=== PATIENT | male | born 1935 | race Caucasian/White ===

== ENCOUNTER 2020-08-13 13:53 | Inpatient (IN) ==
[2020-08-13] MEDS ORDERED: Heparin DRIP 25,000 UNITS BAG 25,000 UNITS/500 ML BAG IV SCH (14:15)
[2020-08-13 14:41] LABS: Urine Appearance Clear; Urine Bilirubin Negative (Negative); Urine Blood 1+ (Negative); Urine Color Yellow; Urine Glucose Negative (Negative); Urine Ketones Negative (Negative); Urine Nitrite Negative (Negative); Urine Protein Negative (Negative); Urine Specific Gravity 1.021 (1.010-1.030); Urine Urobilinogen Negative (Negative)
[2020-08-13 14:50] LABS: ALT 31 U/L (7-52); AST 34 U/L (13-39); Albumin 3.9 g/dL (3.2-5.2); Alkaline Phosphatase 45 U/L (34-104); Anion Gap 7 mmol/L (2-11); BUN/Creatinine Ratio 23.8 (8-20); Blood Urea Nitrogen 31 mg/dL (6-24); CO2 Carbon Dioxide 21 mmol/L (22-32); Calcium 8.6 mg/dL (8.6-10.3); Chloride 110 mmol/L (101-111); Creatine Kinase 350 U/L (10-223); EGFR African American 63.5 (>60); EGFR Non-African American 52.5 (>60); Glucose 123 mg/dL (70-100); Sodium 138 mmol/L (135-145); Total Protein 5.9 g/dL (6.4-8.9)
[2020-08-13 14:56] LABS: Troponin I 2.71 ng/mL (<0.03)
[2020-08-13 14:58] LABS: CKMB ng/mL 30.8 ng/mL (0.6-6.3)
[2020-08-13] MEDS ORDERED: Heparin 5000 UNITS/ML 1 mL VIAL IV SCH (15:00)
[2020-08-13 15:05] LABS: Hematocrit 40 % (42-52); Hemoglobin 13.4 g/dL (14.0-18.0); Mean Corpuscular HGB Conc 34 g/dL (31-36); Mean Corpuscular Hemoglobin 35 pg (27-31); Mean Corpuscular Volume 103 fL (80-94); Red Blood Count 3.83 10^6 /uL (4.18-5.48); Red Cell Distribution Width 14 % (10-15); White Blood Count 6.9 10^3/uL (3.5-10.8)
[2020-08-13 15:06] LABS: ABS Eosinophils 0.2 10^3/ul (0-0.6); ABS Lymphocytes 1.8 10^3/ul (1.0-4.8); Eosinophil % 2.2 %; Lymphocyte % 25.2 %; Nucleated Red Blood Cells % 0.1
[2020-08-13 15:09] LABS: Urine Bacteria Absent (Absent); Urine Red Blood Cell Trace(0-2/hpf) (Absent); Urine White Blood Cell Absent (Absent)
[2020-08-13 15:14] LABS: INR 1.5 (0.82-1.09)
[2020-08-13 15:15] LABS: Activated Partial Thrombo Time 204.1 seconds (26.0-38.0)
[2020-08-13 15:24] LABS: TSH Ultra Thyroid Stim Horm 2.08 mcIU/mL (0.34-5.60)
[2020-08-13 15:47] LABS: Mean Platelet Volume 8.1 fL (7.4-10.4); Platelet Count 95 10^3/uL (150-450)
[2020-08-13] MEDS ORDERED: Ondansetron 4 mg VIAL 2 MG/ML 2 ml VIAL IV PRN (16:07)
[2020-08-13] MEDS ORDERED: Al Hydrox/Mg Hydrox/Simet LIQ 30 ML UDC PO PRN (16:07)
[2020-08-13] MEDS: CMC:Dorzolamide/Timolol OPTH (NF) 10 ML BOT LEFT EYE SCH ×2 (20:00→20:59)
[2020-08-13 20:37] LABS: Troponin I 2.24 ng/mL (<0.03)
[2020-08-14 03:25] LABS: Troponin I 1.79 ng/mL (<0.03)
[2020-08-14] MEDS: CMC:Dorzolamide 2% OPTH (NF) 10 ML BTL LEFT EYE SCH ×3 (08:36→12:41)
[2020-08-14 08:40] LABS: Activated Partial Thrombo Time 76.7 seconds (26.0-38.0); INR 1.45 (0.82-1.09)
[2020-08-14 08:43] LABS: ABS Eosinophils 0.4 10^3/ul (0-0.6); ABS Lymphocytes 1.5 10^3/ul (1.0-4.8); ABS Monocytes 0.6 10^3/ul (0-0.8); ABS Neutrophils 2.5 10^3/ul (1.5-7.7); Eosinophil % 7.4 %; Hematocrit 37 % (42-52); Hemoglobin 12.7 g/dL (14.0-18.0); Lymphocyte % 29.4 %; Mean Corpuscular HGB Conc 34 g/dL (31-36); Mean Corpuscular Hemoglobin 35 pg (27-31); Mean Corpuscular Volume 103 fL (80-94); Mean Platelet Volume 8.6 fL (7.4-10.4); Nucleated Red Blood Cells % 0.2; Platelet Count 83 10^3/uL (150-450); Red Blood Count 3.62 10^6 /uL (4.18-5.48); Red Cell Distribution Width 14 % (10-15)
[2020-08-14 08:44] LABS: Anion Gap 6 mmol/L (2-11); BUN/Creatinine Ratio 20.2 (8-20); Blood Urea Nitrogen 24 mg/dL (6-24); CO2 Carbon Dioxide 22 mmol/L (22-32); Chloride 109 mmol/L (101-111); EGFR African American 70.3 (>60); EGFR Non-African American 58.1 (>60); Glucose 106 mg/dL (70-100); Potassium 3.9 mmol/L (3.5-5.0); Sodium 137 mmol/L (135-145)
[2020-08-14 10:44] VITALS: BP 129/60
[2020-08-14] MEDS ORDERED: Regadenoson 0.4 MG/5 ML SYRINGE ONE (10:46)
[2020-08-14 15:56] LABS: Cholesterol 129 mg/dL; HDL Cholesterol 38.5 mg/dL; LDL Cholesterol 78 mg/dL; Triglycerides 64 mg/dL
[2020-08-14 20:14] LABS: Folate > 20.00 ng/mL (>3.99)
[2020-08-14 20:18] LABS: Vitamin B12 347 pg/mL (180-914)
== END 2020-08-14 14:50 | disposition home or self-care (01) | DRG 201 ==
LOC: ED 13:53 → MEDTELE 16:07
PROVIDERS: ADMIT Pediatrics; ATTEND Internal Medicine

== ENCOUNTER 2024-03-27 15:55 | Inpatient (IN) ==
[2024-03-27] MEDS: Morphine 4 MG/ML VIAL (1 ml) IV ONE (16:33)
[2024-03-27] MEDS: NS 0.9% 1000 ml BAG 1,000 ML IV SCH (17:41)
[2024-03-27] MEDS: Dorzolamide 2% OPTH (NF) 10 ML BTL BOTH EYES SCH (20:12)
[2024-03-27] MEDS: Ondansetron 4 mg VIAL 2 MG/ML 2 ml VIAL IV PRN (20:24)
[2024-03-27] MEDS: Heparin 5000 UNITS/ML 1 mL VIAL SUBCUT ONE (20:24)
[2024-03-27] MEDS: Latanoprost 0.005% 2.5 ml BTL LEFT EYE SCH (23:58)
[2024-03-28 06:26] LABS: Hematocrit 39.8 % (38-53); Hemoglobin 13.6 g/dL (13.2-16.3); Mean Corpuscular Hemoglobin 35.6 pg (27-33); Mean Corpuscular Hgb Conc 34.2 g/dL (31-36); Mean Corpuscular Volume 104.2 fL (80-97); Red Blood Count 3.82 10^6/uL (4.06-5.63); White Blood Count 6.5 10^3/uL (3.6-10.2)
[2024-03-28 06:40] LABS: ABS Eosinophils 0.2 10^3/uL (0.0-0.5); ABS Monocytes 0.9 10^3/uL (0.0-1.1); ABS Neutrophils 4.3 10^3/uL (1.5-7.6); ABS Nucleated RBC 0.01 10^3/ul; Eosinophil % 3.9 %; Lymphocyte % 15.1 %; Mean Platelet Volume 7.5 fL (7.5-11.2); Nucleated Red Blood Cells % 0.1 %/100WBC (0.0-0.8); Platelet Count 79 10^3/uL (150-450)
[2024-03-28 06:59] LABS: Calcium 8.4 mg/dL (8.6-10.3); Creatinine, Serum 1.16 mg/dL (0.67-1.17); Potassium 4.2 mmol/L (3.5-5.0); eGFR CKD-EPI 60.6 (>60)
[2024-03-28] MEDS ORDERED: Naloxone 0.4 mg VIAL 0.4 mg/ml 1 ml VIAL IV PRN (09:05)
[2024-03-28] MEDS ORDERED: Ondansetron 4 mg VIAL 2 MG/ML 2 ml VIAL IV PRN (09:05)
[2024-03-28] MEDS ORDERED: fentaNYL 100 mcg/2 ml 50 MCG/ML VIAL IV PRN (09:05)
[2024-03-28] MEDS ORDERED: Metoclopramide 5 MG/ML VIAL (10 mg) IV PRN (09:05)
[2024-03-28] MEDS ORDERED: Lidocaine 2% PF 5 ML VIAL ONE (09:44)
[2024-03-28] MEDS ORDERED: Propofol 10 MG/ML 20 ML BTL ONE (09:44)
[2024-03-28] MEDS ORDERED: NS 0.45% 1000 ml BAG 1,000 ML IV SCH (10:00)
[2024-03-28] MEDS: PTO:Dorzolamide/Timolol OPTH (NF) 10 ML BOT LEFT EYE SCH (10:09)
[2024-03-28] MEDS ORDERED: fentaNYL 100 mcg/2 ml 50 MCG/ML VIAL ONE (10:32)
[2024-03-28] MEDS ORDERED: ceFAZolin 2 GM PREMIX 2 GM/50 ML BAG ONE (10:44)
[2024-03-28] MEDS ORDERED: Rocuronium 50 mg VIAL 10 mg/ml 5 ml VIAL (50 mg) ONE (10:56)
[2024-03-28] MEDS ORDERED: Ondansetron 4 mg VIAL 2 MG/ML 2 ml VIAL ONE (11:00)
[2024-03-28] MEDS ORDERED: Dexamethasone IV 4 MG/ML VIAL 1 ml VIAL ONE (11:00)
[2024-03-28] MEDS ORDERED: Succinylcholine 200 mg VIAL 20 mg/ml 10 ml VIAL (200 mg) ONE (11:00)
[2024-03-28] MEDS ORDERED: HYDROmorphone 0.5 MG/0.5 ML SYRINGE ONE (11:18)
[2024-03-28 13:01] LABS: Hemoglobin 14.5 g/dL (13.2-16.3)
[2024-03-28] MEDS ORDERED: Magnesium Hydroxide LIQ 30 ML UDC PO PRN (13:26)
[2024-03-28] MEDS: Buffered Lidocaine 1% SYRIN 1 ml INTRADERM ONE (13:27)
[2024-03-28] MEDS: Acetaminophen IV 1 GM/100ML 1,000 MG/100 ML BAG IV ONE (13:27)
[2024-03-28] MEDS: Scopolamine 1 mg/72hr PATCH TRANSDERM ONE (13:28)
[2024-03-28] MEDS: Lactated Ringers 1000 ml BAG 1,000 ML IV SCH ×2 (13:28→16:23)
[2024-03-28] MEDS: ceFAZolin 2 GM PREMIX 2 GM/50 ML BAG IV SCH (18:52)
[2024-03-28] MEDS: Polyethylene Glycol 3350 17 GM PACKET PO PRN (21:03)
[2024-03-28] MEDS: Magnesium Hydroxide LIQ 30 ML UDC PO SCH (22:36)
[2024-03-29 08:41] LABS: Hematocrit 33.5 % (38-53); Hemoglobin 11.9 g/dL (13.2-16.3); Mean Platelet Volume 7.4 fL (7.5-11.2); Platelet Count 75 10^3/uL (150-450)
[2024-03-29 09:10] LABS: Calcium 7.8 mg/dL (8.6-10.3); Creatinine, Serum 1.27 mg/dL (0.67-1.17); Potassium 4.2 mmol/L (3.5-5.0); eGFR CKD-EPI 54.3 (>60)
[2024-03-29] MEDS: Enoxaparin 40 MG/0.4 ML SYR SUBCUT SCH (14:23)
[2024-03-29] MEDS: Senna TAB 8.6 mg TAB PO PRN (21:30)
[2024-03-31 10:34] LABS: Hematocrit 29.5 % (38-53); Hemoglobin 10.2 g/dL (13.2-16.3); Mean Platelet Volume 7.6 fL (7.5-11.2); Platelet Count 105 10^3/uL (150-450)
[2024-03-31 10:55] VITALS: BP 121/54
[2024-03-31 11:19] LABS: Rapid COVID-19 Molecular Undetected (Undetected)
== END 2024-03-31 11:55 | disposition home or self-care (01) | DRG 522 ==
LOC: EDHOLD 15:55 → ED 15:55 → SSU 20:43 → SUATTDRO 03-28 09:30
PROVIDERS: ADMIT Internal Medicine; ATTEND Student in an Organized Health Care Education/Training Program